=== PATIENT | male | born 1945 | race Caucasian/White ===

== ENCOUNTER 2022-01-31 06:57 | Emergency (ER) | payer OTHER ==
--- OUTSIDE RECORDS SUMMARY | 2022-01-31 06:59 | XMS REPORT | Continuity of Care Document ---
:1945 Author Organization [facility] t Address [address] [place] [address] Care Team Providers Name Role Phone Olya Liu Attending Clinician [phone] Goldfarb_D Attending Clinician Unavailable MAYUR Attending Clinician Unavailable JOANNA Attending Clinician Unavailable Shivamfarb_D Admitting Clinician Unavailable Payers Payer Name Policy Type Policy Number Effective Date Expiration Date Henri MAURO (MEDICARE [id number] 2021 REPLACEMENT PPO) 00:00:00 Problems This patient has no known problems. Allergies, Adverse Reactions, Alerts This patient has no known allergies or adverse reactions. Medications This patient has no known medications. Procedures This patient has no known procedures. Encounters Start End Encounter Admission Attending Care Care Encounter Source Date/Time Date/Time Type Type Clinicians Facility Department ID 2022-01-27 2022-01-27 Outpatient Alexa, [facility] [id number] 00:00:00 00:00:00 Thang Dobson [id number] 2022-01-10 2022-01-10 Outpatient Goldfarb_D U [facility] [address] [facility] [place] 02:37:00 02:37:00 [facility] 2021-12-29 2021-12-29 Outpatient Goldfarb_D U [facility] [address] [facility] [place] 08:45:00 08:45:00 [id number] [facility] 2021-12-28 2021-12-28 Outpatient Goldfarb_D U [facility] [address] [place] [address] 05:55:00 05:55:00 [facility] 2021-12-24 2021-12-24 Outpatient Goldfarb_D [facility] 4428 [place] 02:36:00 02:36:00 [facility] 2021-12-22 2021-12-22 Outpatient Goldfarb_D [facility] 44[address] [place] 11:39:00 11:39:00 [facility] 2021-12-22 2021-12-22 Outpatient Alexa, [facility] [id number] 00:00:00 00:00:00 Thang Dobson [id number] 2021-12-22 2021-12-22 Outpatient Alexa, [facility] [id number] 00:00:00 00:00:00 Thang Dobson [id number] 2021-12-19 2021-12-19 Outpatient Goldfarb_D [facility] 4428 [place] 10:16:00 10:16:00 [facility] 2021-10-13 2021-10-13 Outpatient MAYUR, [facility] [id number] [place] 00:00:00 00:00:00 MAURICIO [address] 2021-10-13 2021-10-13 Outpatient MAYUR, [facility] [id number] [place] 00:00:00 00:00:00 MAURICIO [address] 2021-05-25 2021-05-25 Outpatient JOANNA, [facility] [id number] [place] 00:00:00 00:00:00 YOLANDA [address] 2020-07-04 2020-07-04 Outpatient Goldfarb_D [facility] 4428 [place] 10:12:00 10:12:00 [facility] Results Test Description Test Time Test Comments Results Result Sour e Comments - MRI LW JNT W/O 2019-06-15 Patient Name: CONT BI 09:20:00 NAT GRULLON Unit No: [id number] Report Has Been Amended EXAMS: CPT CODE: [id number] MRI [place] JNT [place] [id number] Addendum - 06/15/2019 SIGNED 06/15/2019 ADDENDUM: [id number] MRI/[id number] The original dictation did not include description of the left knee MRI. TECHNIQUE: Multiplanar, multisequence MRI of the left knee without contrast. COMPARISON: None available. FINDINGS: Menisci: There is evidence of prior meniscectomy involving the body of the medial meniscus. Recurrent complex tear of the medial meniscus is centered at the meniscal body with extension of horizontal component to the posterior horn. No definite lateral meniscal tear visualized. Ligament and tendons: The ACL diffusely thickened with increased signal. No definite tear. PCL is intact. Collateral ligaments are within normal limits. Extensor mechanism is unremarkable. Cartilage/ bone: Broad full-thickness cartilage loss is seen throughout the medial compartment with slight flattening the articular surface as well as scattered subchondral edema. Mild scattered trochlear cartilage degeneration is present. The lateral compartment cartilage is within normal limits. Small tricompartmental osteophytes. Other: A moderate joint effusion is noted. No large loose body. IMPRESSION: 1. Evidence of prior partial medial meniscectomy with recurrent tear involving the posterior horn and body. 2. Severe medial compartment cartilage degeneration diffusely. 3. Moderate size joint effusion. at 0920 Reported and signed by: Guillermo Karimi M.D. Report MRI OF THE RIGHT KNEE, WITHOUT CONTRAST DIAGNOSIS: 1. 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 There is associated complex tearing with maceration of the posterior horn body and apex anterior horn medial meniscus. There is major extrusion of the meniscus. The tear extends to the posterior root. Focal osteonecrosis of the weightbearing surface of the medial femoral condyle cannot be excluded. 2. The anterior cruciate ligament is diffusely thickened and increased in signal compatible with ACL degeneration 3. Moderate joint effusion. 4. Multiseptate ganglion cyst projects from the posterior aspect of the proximal tibiofibular joint. There is a contained mature calcification within the cyst. COMPARISON EXAM: None TECHNIQUE: Sagittal, axial and coronal fat-sat spin density, sagittal T1 and sagittal oblique T2-weighted sequences are obtained of the described right knee. CLINICAL HISTORY: FINDINGS: MENISCI: Medial meniscal tear as described. Lateral meniscus is intact CRUCIATE LIGAMENTS: Marked degeneration of the ACL. PCL is intact. COLLATERAL LIGAMENTS: Medial and lateral collateral ligaments as well as patellar and quadriceps tendons are intact. OSSEOUS STRUCTURES: Osteochondral abnormality medial compartment knee joint. Visualized bony structures of the femur and tibia are within normal limits in signal. PATELLOFEMORAL COMPARTMENT: No chondral abnormality involving the patellofemoral joint. No patellar tilt, or subluxation. Medial and lateral patellar retinacula are intact. SOFT TISSUES: Moderate joint effusion. No popliteal cyst. No soft tissue masses. [facility] NAME: NAT GRULLON [address] [facility] PHYS: Chauncey Barrett MD : 1945 AGE: 74 SEX: M [place], [place] [address] LOC: Y.MRI PHONE #: [phone] EXAM DATE: 06/13/2019 STATUS: DEP CLI FAX #: [phone] RAD #: D/C DT PAGE 2 Signed Report (CONTINUED) Patient Name: NAT GRULLON Unit No: [id number] Report Has Been Amended EXAMS: CPT CODE: [id number] MRI LW JNT W/[place] [address] <Continued> at 1042 Reported and signed by: Gilberto Tobar MD CC: Chauncey Brown MD Technologist: Carmenza Null(R) Transcribed D/ (1042) [facility] NAME: NAT GRULLON [address] [facility] PHYS: Chauncey Barrett MD : 1945 AGE: 74 SEX: M [place] [address] LOC: Y.MRI PHONE #: [phone] EXAM DATE: 06/13/2019 STATUS: DEP CLI FAX #: [phone] RAD #: D/C DT PAGE 3 Signed Report Patient Name: NAT GRULLON Unit No: [id number] Report Has Been Amended EXAMS: CPT CODE: [id number] MRI LW JNT W/[place] [id number] <Continued> Orig Print D/T: S: 06/14/2019 (0752) [facility] NAME: NAT GRULLON [address] [facility] PHYS: Chauncey Barrett MD : 1945 AGE: 74 SEX: M [place] [address] LOC: Y.MRI PHONE #: [phone] EXAM DATE: 06/13/2019 STATUS: DEP CLI FAX #: [phone] RAD #: D/C DT PAGE 4 Signed Report - MRI LW JNT W/O 2019-06-14 Patient Name: CONT BI 10:42:00 NAT GRULLON Unit No: [id number] EXAMS: CPT CODE: [id number] MRI LW JNT W/[place] [id number] MRI OF THE RIGHT KNEE, WITHOUT CONTRAST DIAGNOSIS: 1. 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 There is associated complex tearing with maceration of the posterior horn body and apex anterior horn medial meniscus. There is major extrusion of the meniscus. The tear extends to the posterior root. Focal osteonecrosis of the weightbearing surface of the medial femoral condyle cannot be excluded. 2. The anterior cruciate ligament is diffusely thickened and increased in signal compatible with ACL degeneration 3. Moderate joint effusion. 4. Multiseptate ganglion cyst projects from the posterior aspect of the proximal tibiofibular joint. There is a contained mature calcification within the cyst. COMPARISON EXAM: None TECHNIQUE: Sagittal, axial and coronal fat-sat spin density, sagittal T1 and sagittal oblique T2-weighted sequences are obtained of the described right knee. CLINICAL HISTORY: FINDINGS: MENISCI: Medial meniscal tear as described. Lateral meniscus is intact CRUCIATE LIGAMENTS: Marked degeneration of the ACL. PCL is intact. COLLATERAL LIGAMENTS: Medial and lateral collateral ligaments as well as patellar and quadriceps tendons are intact. OSSEOUS STRUCTURES: Osteochondral abnormality medial compartment knee joint. Visualized bony structures of the femur and tibia are within normal limits in signal. PATELLOFEMORAL COMPARTMENT: No chondral abnormality involving the patellofemoral joint. No patellar tilt, or subluxation. Medial and lateral patellar retinacula are intact. SOFT TISSUES: Moderate joint effusion. No popliteal cyst. No soft tissue masses. [facility] NAME: NAT GRULLON [address] [place] [address] PHYS: Chauncey Barrett MD : 1945 AGE: 74 SEX: M [place] [address] LOC: Y.MRI PHONE #: [phone] EXAM DATE: 06/13/2019 STATUS: DEP CLI FAX #: [phone] RAD #: D/C DT PAGE 1 Signed Report (CONTINUED) Patient Name: NAT GRULLON Unit No: [id number] EXAMS: CPT CODE: [id number] MRI [place] JNT W/[place] [address] <Continued> at 1042 Reported and signed by: Gilberto Tobar MD CC: Chauncey Brown MD Technologist: Carmenza Null(R) Transcribed D/ (1042) [email or web address] NAME: NAT GRULLON [address] [place] [address] PHYS: Chauncey Barrett MD : 1945 AGE: 74 SEX: M [place] [address] LOC: Y.MRI PHONE #: [phone] EXAM DATE: 06/13/2019 STATUS: DEP CLI FAX #: [phone] RAD #: D/C DT PAGE 2 Signed Report Patient Name: NAT GRULLON Unit No: [id number] EXAMS: CPT CODE: [id number] MRI [place] JNT [place] [id number] <Continued> Orig Print D/T: S: 06/14/2019 (1045) [facility] NAME: NAT GRULLON [address] [facility] PHYS: Chauncey Barrett MD : 1945 AGE: 74 SEX: Dharmesh [place], [place] [address] LOC: Y.MRI PHONE #: [phone] EXAM DATE: 06/13/2019 STATUS: DEP CLI FAX #: [phone] RAD #: D/C DT PAGE 3 Signed Report
[2022-01-31] MEDS ORDERED: MORPHINE 2 MG/ML SYR ONE (07:44)
[2022-01-31] MEDS ORDERED: ONDANSETRON 4 MG/2 ML VIAL ONE (07:44)
[2022-01-31] MEDS ORDERED: NA CHLORIDE 0.9% 1,000 ML ONE (07:45)
[2022-01-31 08:00] LABS: Absolute Lymphocytes (CBC) 0.9 K/uL (0.7-4.9); Hematocrit 40.9 % (39.6-49.0); Lymphocytes % 26.1 % (15.3-44.8); RBC Red Blood Cell Count 4.24 M/uL (4.33-5.43)
--- NOTE | 2022-01-31 08:08 | RAD REPORT ---
EXAM DESCRIPTION: CTStone Protocol - 01/31/2022 7:58 am CLINICAL HISTORY: Flank pain, kidney stone suspected COMPARISON: Abdomen Pelvis W Contrast dated 02/10/2016; ABDOMEN W CONTRAST dated 04/29/2014; CT ABD PELVIS W CONTRAST dated 12/28/2008 TECHNIQUE: CT of the abdomen and pelvis was performed without contrast. All CT scans are performed using dose optimization technique as appropriate and may include automated exposure control or mA/KV adjustment according to patient size. FINDINGS: Lower chest: Coronary artery calcifications. Liver: No acute abnormality or suspicious lesions. Biliary: No biliary ductal dilatation. Cholecystectomy. Stomach: No significant focal abnormality. Duodenum: No significant focal abnormality. Pancreas: No significant abnormality. Spleen: No significant abnormality. Adrenal: No suspicious lesions. Kidney/ureter: Mild left-sided hydronephrosis secondary to a 6 mm stone in the left mid ureter. Bilat eral renal sinus cysts. Bilateral renal calculi also noted. The largest on the right kidney measures 4 millimeters. The largest stone the left kidney measures 2 millimeters. Too small to characterize an d/or benign appearing renal lesions are noted. Retroperitoneum: No retroperitoneal adenopathy. Vascular: No aneurysm. Bowel: Diverticulosis without diverticulitis .. Peritoneum: No ascites or free air. Right inguinal hernia repair. Bladder: 5 mm stone within the bladder. Reproductive: Prostatomegaly. Bones: No acute fracture. Multilevel degenerative changes are present in the spine. Other: n/a IMPRESSION: Mild left-sided hydronephrosis secondary to a 6 mm stone in the left mid ureter. In liyah tion, a 5 mm stone is present within the bladder lumen.
[2022-01-31] MEDS ORDERED: KETOROLAC 30 MG/ML INJ ONE (08:19)
[2022-01-31 08:26] LABS: Albumin 3.9 g/dL (3.4-5.0); Bilirubin Direct 0.2 mg/dL (0-0.2); Bilirubin Total 0.9 mg/dL (0.2-1.0); Potassium 3.6 mmol/L (3.5-5.1); Protein, Total 7.8 g/dL (6.4-8.2)
[2022-01-31 09:35] LABS: Urine Blood 3+ (Negative); Urine Glucose Negative (Negative); Urine Protein 1+ (Negative); Urine Specific Gravity >=1.030 (1.005-1.030); Urine pH 5.5 (5.0-7.0)
[2022-01-31 09:59] LABS: Urine Bacteria NONE SEEN /HPF (NONE SEEN); Urine RBC >50 /HPF (NONE SEEN)
--- NOTE | 2022-01-31 10:47 | ER ---
Nurse's Notes [facility] Name: Truman Malave Jr Age: 76 yrs Sex: Male : 1945 Arrival Date: 01/31/2022 Time: 06:59 Bed 14 Private MD: Diagnosis: Calculus of ureter Presentation: 01/31 07:10 Chief complaint: Patient states: Had prostate biopsy Tuesday. Took Bactrim for ll1 surgery. Has had loose stools since. L lower back pain started . Now the pain wraps around to L groin area. No fever all week. Coronavirus screen: Vaccine status: Patient reports receiving the 2nd dose of the covid vaccine. Client denies travel out of the [place] in the last 14 days. At this time, the client does not indicate any symptoms associated with coronavirus-19. Ebola Screen: Patient denies travel to an Ebola-affected area in the 21 days before illness onset. Initial Sepsis Screen: Does the patient meet any 2 criteria? No. Patient's initial sepsis screen is negative. Does the patient have a suspected source of infection? Yes: Dysuria/Frequency/Urgency/UTI Acute abdominal pain. Risk Assessment: Do you want to hurt yourself or someone else? Patient reports no desire to harm self or others. Onset of symptoms was January 28, 2022. 07:10 Method Of Arrival: Ambulatory ll1 07:10 Acuity: NETTE 3 ll1 Triage Assessment: 07:14 General: Appears uncomfortable, Behavior is calm, cooperative, appropriate for age. ll1 Pain: Complains of pain in L back/L groin Pain currently is 8 out of 10 on a pain scale. Neuro: No deficits noted. Cardiovascular: No deficits noted. Respiratory: No deficits noted. GI: Reports cramping, gaseousness, indigestion, "loose stools". : Reports pain in left flank(s), in lower back blood in urine after biopsy. Historical: - Allergies: 07:10 Latex, Natural Rubber; ll1 07:10 Phenergan; ll1 07:10 Dexilant; ll1 - PMHx: 07:10 Hypertensive disorder; ll1 - PSHx: 07:10 Cholecystectomy; hernia SX; ll1 - Immunization history:: Client reports receiving the 2nd dose of the Covid vaccine. - Social history:: Smoking status: Patient denies any tobacco usage or history of. Patient/guardian denies using alcohol, street drugs, The patient lives with family. - Family history:: not pertinent. Screenin:15 Abuse screen: Denies threats or abuse. Denies injuries from another. Nutritional bp screening: No deficits noted. Tuberculosis screening: No symptoms or risk factors identified. Fall Risk None identified. Assessment: 07:15 General: SEE TRIAGE NOTE. bp 07:27 Reassessment: DR John at bedside to speak w/ pt. ph 09:30 Reassessment: Patient appears in no apparent distress at this time. Patient and/or ph family updated on plan of care and expected duration. Pain level reassessed. Patient is alert, oriented x 3, equal unlabored respirations, skin warm/dry/pink. Patient states feeling better. Patient states symptoms have improved. 11:11 Reassessment: Patient appears in no apparent distress at this time. Patient and/or ph family updated on plan of care and expected duration. Pain level reassessed. Patient is alert, oriented x 3, equal unlabored respirations, skin warm/dry/pink. Vital Signs: 07:10 BP 175 / 87; Pulse 78; Resp 16; Temp 97.8; Pulse Ox 99% ; Weight 68.04 kg; Height 5 ft. ll1 6 in. (167.64 cm); Pain 8/10; 10:00 BP 165 / 78; Pulse 65; Resp 18; Temp 98.0; Pulse Ox 99% on R/A; ph 11:11 BP 162 / 78; Pulse 62; Resp 18; Pulse Ox 98% on R/A; ph 07:10 Body Mass Index 24.21 (68.04 kg, 167.64 cm) ll1 ED Course: 06:59 Patient arrived in ED. ja2 07:01 Arm band placed on Patient placed in an exam room, on a stretcher. ll1 07:14 Triage completed. ll1 07:15 Patient has correct armband on for positive identification. Bed in low position. Call bp light in reach. Side rails up X2. 07:18 Narayan Elliott, BEATRIZ is Primary Nurse. bp 07:31 Kika John MD is Attending Physician. ma2 07:40 Initial lab(s) drawn, by me, sent to lab. Inserted saline lock: 20 gauge in right ph forearm, using aseptic technique. Blood collected. 07:59 CT Stone Protocol In Process Unspecified. EDMS 10:45 Brant Larsen MD is Referral Physician. ma2 11:11 No provider procedures requiring assistance completed. Patient did not have IV access ss during this emergency room visit. Administered Medications: 07:45 Drug: Zofran (Ondansetron) 4 mg Route: IVP; Site: right forearm; ph 08:04 Follow up: Response: No adverse reaction ph 07:45 Drug: NS 0.9% 1000 ml Route: IV; Rate: 1 bolus; Site: right forearm; ph 10:01 Follow up: Response: No adverse reaction; IV Status: Completed infusion; IV Intake: ph 1000ml 07:47 Drug: morphine 2 mg Route: IVP; Infused Over: 4 mins; Site: right forearm; ph 08:04 Follow up: Response: No adverse reaction; RASS: Alert and Calm (0) ph 08:17 Drug: Ketorolac 30 mg Route: IVP; Site: right forearm; ph 10:00 Follow up: Response: No adverse reaction; Pain is decreased ph Medication: 07:15 VIS not applicable for this client. bp Intake: 10:01 IV: 1000ml; Total: 1000ml. ph Outcome: 10:45 Discharge ordered by . ma2 11:11 Discharged to home ambulatory. ss 11:11 Condition: good 11:11 Discharge instructions given to patient, Instructed on discharge instructions, follow up and referral plans. medication usage, Demonstrated understanding of instructions, follow-up care, Prescriptions given X 2. 11:13 Patient left the ED. ss Signatures: Dispatcher [employer] EDMD Pratima Graham RN RN Lora Gaston RN RN Narayan Elliott RN RN bp Alzahri, Mohammad, MD MD ma2 Lewis, Lynsay, RN RN ll1 Stephani Girard Corrections: (The following items were deleted from the chart) 10:00 09:57 Reassessment: Patient appears in no apparent distress at this time. Patient ph and/or family updated on plan of care and expected duration. Pain level reassessed. Patient is alert, oriented x 3, equal unlabored respirations, skin warm/dry/pink. Pt c/o pain, verbal order received for dilaudid 1 mg, pt's BP noted to be low at 90/50, rate of fluid bolus increased and dilaudid held, will reassess BP after fluid bolus complete ph 10:00 09:59 BP 90 / 50; Pulse 103bpm; Resp 18bpm; Pulse Ox 95% RA; ph ph
--- NOTE | 2022-01-31 10:47 | EDPHYS ---
Physician Documentation [facility] Name: Truman Malave Jr Age: 76 yrs Sex: Male : 1945 Arrival Date: 01/31/2022 Time: 06:59 Bed 14 Private MD: ED Physician Kika John HPI: 01/31 07:37 This 76 yrs old Male presents to ER via Ambulatory with complaints of Low Back Pain. ma2 07:37 This 76 yrs old Male presents to ER via Ambulatory with complaints of LEFT FLANK PAIN. ma2 07:37 The pain does not radiate. Onset: The symptoms/episode began/occurred gradually, 2 ma2 day(s) ago. Associated signs and symptoms: Pertinent negatives: constipation, dysuria, headache, hematuria. Severity of symptoms: At their worst the symptoms were moderate, in the emergency department the symptoms are unchanged. The patient has not experienced similar symptoms in the past. Historical: - Allergies: 07:10 Latex, Natural Rubber; ll1 07:10 Phenergan; ll1 07:10 Dexilant; ll1 - PMHx: 07:10 Hypertensive disorder; ll1 - PSHx: 07:10 Cholecystectomy; hernia SX; ll1 - Immunization history:: Client reports receiving the 2nd dose of the Covid vaccine. - Social history:: Smoking status: Patient denies any tobacco usage or history of. Patient/guardian denies using alcohol, street drugs, The patient lives with family. - Family history:: not pertinent. ROS: 07:37 Constitutional: Negative for fever, chills, and weight loss. ma2 07:37 All other systems are negative. Exam: 07:37 Constitutional: This is a well developed, well nourished patient who is awake, alert, ma2 and in no acute distress. Eyes: Pupils equal round and reactive to light, extra-ocular motions intact. Lids and lashes normal. Conjunctiva and sclera are non-icteric and not injected. Cornea within normal limits. Periorbital areas with no swelling, redness, or edema. ENT: Nares patent. No nasal discharge, no septal abnormalities noted. Tympanic membranes are normal and external auditory canals are clear. Oropharynx with no redness, swelling, or masses, exudates, or evidence of obstruction, uvula midline. Mucous membranes moist. Neck: Trachea midline, no thyromegaly or masses palpated, and no cervical lymphadenopathy. Supple, full range of motion without nuchal rigidity, or vertebral point tenderness. No Meningismus. Chest/axilla: Normal chest wall appearance and motion. Nontender with no deformity. No lesions are appreciated. Cardiovascular: Regular rate and rhythm with a normal S1 and S2. No gallops, murmurs, or rubs. Normal PMI, no JVD. No pulse deficits. Respiratory: Lungs have equal breath sounds bilaterally, clear to auscultation and percussion. No rales, rhonchi or wheezes noted. No increased work of breathing, no retractions or nasal flaring. Abdomen/GI: Soft, non-tender, with normal bowel sounds. No distension or tympany. No guarding or rebound. No evidence of tenderness throughout. Back: No spinal tenderness. No costovertebral tenderness. Full range of motion. MS/ Extremity: Pulses equal, no cyanosis. Neurovascular intact. Full, normal range of motion. Neuro: Awake and alert, GCS 15, oriented to person, place, time, and situation. Cranial nerves II-XII grossly intact. Motor strength 5/5 in all extremities. Sensory grossly intact. Cerebellar exam normal. Normal gait. Vital Signs: 07:10 BP 175 / 87; Pulse 78; Resp 16; Temp 97.8; Pulse Ox 99% ; Weight 68.04 kg; Height 5 ft. ll1 6 in. (167.64 cm); Pain 8/10; 10:00 BP 165 / 78; Pulse 65; Resp 18; Temp 98.0; Pulse Ox 99% on R/A; ph 11:11 BP 162 / 78; Pulse 62; Resp 18; Pulse Ox 98% on R/A; ph 07:10 Body Mass Index 24.21 (68.04 kg, 167.64 cm) ll1 MDM: 07:37 Differential diagnosis: arthritis, strain, contusion, UTI. ma2 08:13 Data reviewed: vital signs, nurses notes, EMS record. Counseling: I had a detailed ma2 discussion with the patient and/or guardian regarding: the historical points, exam findings, and any diagnostic results supporting the discharge/admit diagnosis, the presence of at least one elevated blood pressure reading (>120/80) during this emergency department visit, the need for outpatient follow up. 10:45 Patient medically screened. ms2 01/31 07:32 Order name: Basic Metabolic Panel; Complete Time: 10:13 ms2 01/31 07:32 Order name: CBC with Diff; Complete Time: 08:09 ms2 01/31 07:32 Order name: Hepatic Function; Complete Time: 10:13 ms2 01/31 07:32 Order name: Lipase; Complete Time: 10:13 ms2 01/31 07:32 Order name: Urine Microscopic Only; Complete Time: 10:13 ms2 01/31 09:36 Order name: Urine Dipstick-Ancillary; Complete Time: 10:13 EDMS 01/31 07:32 Order name: CT Stone Protocol; Complete Time: 08:09 ms2 01/31 07:32 Order name: IV Saline Lock; Complete Time: 08:03 ms2 01/31 07:32 Order name: NPO; Complete Time: 07:34 ms2 01/31 07:32 Order name: Urine Dipstick-Ancillary (obtain specimen); Complete Time: 10:01 [facility] Administered Medications: 07:45 Drug: Zofran (Ondansetron) 4 mg Route: IVP; Site: right forearm; ph 08:04 Follow up: Response: No adverse reaction ph 07:45 Drug: NS 0.9% 1000 ml Route: IV; Rate: 1 bolus; Site: right forearm; ph 10:01 Follow up: Response: No adverse reaction; IV Status: Completed infusion; IV Intake: ph 1000ml 07:47 Drug: morphine 2 mg Route: IVP; Infused Over: 4 mins; Site: right forearm; ph 08:04 Follow up: Response: No adverse reaction; RASS: Alert and Calm (0) ph 08:17 Drug: Ketorolac 30 mg Route: IVP; Site: right forearm; ph 10:00 Follow up: Response: No adverse reaction; Pain is decreased ph Disposition Summary: 01/31/22 10:45 Discharge Ordered Location: Home ma2 Condition: Stable ma2 Diagnosis - Calculus of ureter ma2 Followup: ma2 - With: - When: Tomorrow - Reason: If symptoms return, Continuance of care Discharge Instructions: - Discharge Summary Sheet ma2 - Kidney Stones ma2 - Dietary Guidelines to Help Prevent Kidney Stones ma2 Forms: - Medication Reconciliation Form ma2 - Thank You Letter ma2 - Antibiotic Education ma2 - Prescription Opioid Use ma2 Prescriptions: - Diclofenac Sodium 75 mg Oral Tablet Sustained Release - take 1 tablet by ORAL route 2 times per day; 30 tablet; Refills: 0, Product ma2 Selection Permitted - Tylenol-Codeine #3 300 mg-30 mg Oral - take 1 tablet by ORAL route 3 times per day; 21 tablet; Refills: 0, Product ma2 Selection Permitted Signatures: Dispatcher [employer] Lora Salgado, RN RN Kika John MD MD ms2 Garfield Sloan RN RN 1
[2022-01-31 11:28] VITALS: TEMP 98
[2022-01-31 11:29] VITALS: BP 162/78; O2SAT 98
== END 2022-01-31 11:13 | disposition home or self-care (01) ==
LOC: ER 06:57
DX: N20.1 Calculus of ureter (principal); I10 Essential (primary) hypertension; Z88.8 Allergy status to other drugs, medicaments and biological substances; Z91.040 Latex allergy status; Z91.048 Other nonmedicinal substance allergy status
CPT/HCPCS: 85025; 80048; 36415; 80076; 83690; 76377; 74176; J2270; J7030; J2405; 81003; 81015; 96361; 96374; 96375; 99284

== ENCOUNTER 2022-02-05 21:31 | Emergency (ER) | payer OTHER ==
--- OUTSIDE RECORDS SUMMARY | 2022-02-05 21:36 | XMS REPORT | Continuity of Care Document ---
:1945 Author Organization [facility] t Address [address] [place] [address] Care Team Providers Name Role Phone Leandra Attending Clinician Unavailable CAMILO Attending Clinician Unavailable Olya Liu Attending Clinician [phone] MAYUR Attending Clinician Unavailable JOANNA Attending Clinician Unavailable Leandra Admitting Clinician Unavailable CAMILO Admitting Clinician Unavailable Payers Payer Name Policy Type Policy Number Effective Date Expiration Date Henri feliz [employer] (MEDICARE [id number] 2021 REPLACEMENT PPO) 00:00:00 [id number] Problems This patient has no known problems. Allergies, Adverse Reactions, Alerts Allergy Allergy Status Severity Reaction(s) Onset Inactive Treating Comm ents Source Name Type Date Date Clinician Latex, Allergy Active Mild Itching Lenora Natural - Rubber [facility] Latex, Allergy Active Mild Itching Lenora Natural - Rubber [facility] Latex, Allergy Active Mild Itching Lenora Natural - Rubber [facility] Latex, Allergy Active Mild Itching Lenora Natural - Rubber [facility] Latex, Allergy Active Mild Itching Lenora Natural - Rubber [facility] Latex, Allergy Active Mild Itching Lenora Natural - Rubber [facility] Latex, Allergy Active Mild Itching Lenora Natural - Rubber [facility] Latex, Allergy Active Mild Itching Lenora Natural - Rubber [facility] Medications This patient has no known medications. Vital Signs Vital Name Observation Time Observation Value Comments Source HEIGHT 2022-02-02 22:40:05 66 IN WEIGHT 2022-02-02 22:40:05 150 LB HEIGHT 2022-02-02 22:39:07 66 IN WEIGHT 2022-02-02 22:39:07 150 LB HEIGHT 2022-02-02 22:28:04 66 IN WEIGHT 2022-02-02 22:28:04 150 LB HEIGHT 2022-02-02 22:25:09 66 IN WEIGHT 2022-02-02 22:25:09 150 LB HEIGHT 2022-02-02 22:24:07 66 IN WEIGHT 2022-02-02 22:24:07 150 LB HEIGHT 2022-02-02 22:23:11 66 IN WEIGHT 2022-02-02 22:23:11 150 LB HEIGHT 2022-02-02 22:23:04 66 IN WEIGHT 2022-02-02 22:23:04 150 LB HEIGHT 2022-02-02 22:22:05 66 IN WEIGHT 2022-02-02 22:22:05 150 LB HEIGHT 2022-02-02 22:20:06 66 IN WEIGHT 2022-02-02 22:20:06 150 LB Procedures This patient has no known procedures. Encounters Start End Encounter Admission Attending Care Care Encounter Source Date/Time Date/Time Type Type Clinicians Facility Department ID 2022-02-05 2022-02-05 Outpatient Goldfarb_D U [facility] [id number] [facility] [place] 10:42:00 10:42:00 [facility] 2022-02-02 2022-02-02 Emergency PINKSTAFF, CPRK OE [id number] Lenora 22:00:00 22:30:00 [facility] 2022-01-27 2022-01-27 Outpatient Alexa, [facility] [id number] 00:00:00 00:00:00 Thang Dobson [id number] 2022-01-10 2022-01-10 Outpatient Goldfarb_D [facility] [address] [facility] [place] 02:37:00 02:37:00 [facility] 2021-12-29 2021-12-29 Outpatient Goldfarb_D U [facility] [address] [facility] [place] 08:45:00 08:45:00 [facility] 2021-12-28 2021-12-28 Outpatient Goldfarb_D [facility] [address] [place] 05:55:00 05:55:00 [facility] 2021-12-24 2021-12-24 Outpatient Goldfarb_D [facility] 44[address] [place] 02:36:00 02:36:00 [facility] 2021-12-22 2021-12-22 Outpatient Goldfarb_D [facility] [address] [place] 11:39:00 11:39:00 [facility] 2021-12-22 2021-12-22 Outpatient Alexa, [facility] U [id number] 00:00:00 00:00:00 Thang Dobson [id number] 2021-12-22 2021-12-22 Outpatient Alexa, [facility] [place] [id number] 00:00:00 00:00:00 Thang Olya [id number] 2021-12-19 2021-12-19 Outpatient Goldfarb_D [facility] [address] [place] 10:16:00 10:16:00 [facility] 2021-10-13 2021-10-13 Outpatient MAYUR, [facility] [id number] [place] 00:00:00 00:00:00 MAURICIO [address] 2021-10-13 2021-10-13 Outpatient MAYUR [facility] [id number] [place] 00:00:00 00:00:00 MAURICIO [address] 2021-05-25 2021-05-25 Outpatient JOANNA, [facility] [id number] [place] 00:00:00 00:00:00 YOLANDA [address] 2020-07-04 2020-07-04 Outpatient Goldfarb_D U [facility] [address] [place] 10:12:00 10:12:00 [facility] Results Test Description Test Time Test Comments Results Result Sourc e Comments - MRI LW JNT W/O 2019-06-15 Patient Name: CONT BI 09:20:00 NAT GRULLON Unit No: [id number] Report Has Been Amended EXAMS: CPT CODE: [id number] MRI LW JNT W/[place] [id number] Addendum - 06/15/2019 SIGNED 06/15/2019 ADDENDUM: [id number] MRI/[id number] The original dictation did not include [...] medial compartment of the knee joint with [facility] NAME: NAT GRULLON [address] [facility] PHYS: Chauncey Barrett MD : 1945 AGE: 74 SEX: M [place], [place] [address] LOC: Y.MRI PHONE #: [phone] EXAM DATE: 06/13/2019 STATUS: DEP CLI FAX #: [phone] RAD #: D/C DT PAGE 1 Signed Report (CONTINUED) Patient Name: NAT GRULLON Unit No: [id number] Report Has Been Amended EXAMS: CPT CODE: [id number] MRI LW JNT W/[place] [address] <Continued> complete loss of cartilage and associated [...] No popliteal cyst. No soft tissue masses. [facility] NAME: NAT GRULLON [address] [facility] PHYS: Chauncey Barrett MD : 1945 AGE: 74 SEX: M [place], [place] [address] LOC: Y.MRI PHONE #: [phone] EXAM DATE: 06/13/2019 STATUS: DEP CLI FAX #: [phone] RAD #: D/C DT PAGE 2 Signed Report (CONTINUED) Patient Name: NAT GRULLON Unit No: [id number] Report Has Been Amended EXAMS: CPT CODE: [id number] MRI LW JNT W/[place] [address] <Continued> at 1042 Reported and signed by: Gilberto Tobar MD CC: Chauncey Brown MD Technologist: Carmenza Null(R) Transcribed D/ (6612) Armando.GVG [facility] NAME: NAT GRULLON [address] [place] [address] PHYS: Chauncey Barrett MD : 1945 AGE: 74 SEX: M [place] [address] LOC: Y.MRI PHONE #: [phone] EXAM DATE: 06/13/2019 STATUS: DEP CLI FAX #: [phone] RAD #: D/C DT PAGE 3 Signed Report Patient Name: NAT GRULLON Unit No: [id number] Report Has Been Amended EXAMS: CPT CODE: [id number] MRI LW JNT [place] [address] <Continued> Orig Print D/T: S: 06/14/2019 (1399) [facility] NAME: NAT GRULLON [facility] PHYS: Chauncey Barrett MD : 1945 AGE: 74 SEX: M [place] [address] LOC: Y.MRI PHONE #: [phone] EXAM DATE: 06/13/2019 STATUS: DEP CLI FAX #: [phone] RAD #: D/C DT PAGE 4 Signed Report - MRI LW JNT W/O 2019-06-14 Patient Name: CONT BI 10:42:00 NAT GRULLON Unit No: [id number] EXAMS: CPT CODE: [id number] MRI LW JNT W/[place] [address] MRI OF THE RIGHT KNEE, WITHOUT CONTRAST [...] No popliteal cyst. No soft tissue masses. [facility] NAME: NAT GRULLON [address] [place] [address] PHYS: Chauncey Barrett MD : 1945 AGE: 74 SEX: M [place] [address] LOC: Y.MRI PHONE #: [phone] EXAM DATE: 06/13/2019 STATUS: DEP CLI FAX #: [phone] RAD #: D/C DT PAGE 1 Signed Report (CONTINUED) Patient Name: NAT GRULLON Unit No: [id number] EXAMS: CPT CODE: [id number] MRI [place] JNT W/[place] [address] <Continued> at 1042 Reported and signed by: Gilberto Tobar MD CC: Chauncey Bronw MD Technologist: Carmenza Null(R) Transcribed D/ (1042) tALINA.GVG [facility] NAME: NAT GRULLON [address] [place] [address] PHYS: Chauncey Barrett MD : 1945 AGE: 74 SEX: M [place] [address] LOC: Y.MRI PHONE #: [phone] EXAM DATE: 06/13/2019 STATUS: DEP CLI FAX #: [phone] RAD #: D/C DT PAGE 2 Signed Report Patient Name: NAT GRULLON Unit No: [id number] EXAMS: CPT CODE: [id number] MRI [place] JNT W/[place] [address] <Continued> Orig Print D/T: S: 06/14/2019 (1045) [facility] NAME: NAT GRULLON [address] [facility] PHYS: Chauncey Barrett MD : 1945 AGE: 74 SEX: M [place], [place] [address] LOC: Y.MRI PHONE #: [phone] EXAM DATE: 06/13/2019 STATUS: DEP CLI FAX #: [phone] RAD #: D/C DT PAGE 3 Signed Report
[2022-02-05] MEDS ORDERED: ONDANSETRON 4 MG/2 ML VIAL ONE (22:44)
[2022-02-05] MEDS ORDERED: MORPHINE 4 MG/ML SYR ONE (22:44)
[2022-02-05] MEDS ORDERED: NA CHLORIDE 0.9% 1,000 ML ONE (22:44)
[2022-02-05 23:28] LABS: Absolute Lymphocytes (CBC) 0.7 K/uL (0.7-4.9); Hematocrit 35.6 % (39.6-49.0); Lymphocytes % 8.4 % (15.3-44.8); MPV 8.2 fL (7.6-11.3); RBC Red Blood Cell Count 3.71 M/uL (4.33-5.43)
[2022-02-05 23:47] LABS: Albumin 3.7 g/dL (3.4-5.0); Bilirubin Total 1.1 mg/dL (0.2-1.0); Potassium 3.1 mmol/L (3.5-5.1); Protein, Total 7.4 g/dL (6.4-8.2)
[2022-02-06 00:03] LABS: Urine Blood 2+ (Negative); Urine Glucose Negative (Negative); Urine Protein Trace (Negative); Urine Specific Gravity 1.025 (1.005-1.030); Urine pH 5.5 (5.0-7.0)
[2022-02-06 00:25] LABS: Urine Bacteria 20-50 /HPF (NONE SEEN); Urine Mucus 1+ /HPF (NONE SEEN); Urine RBC 20-50 /HPF (NONE SEEN)
[2022-02-06] MEDS ORDERED: KETOROLAC 30 MG/ML INJ ONE (01:04)
[2022-02-06] MEDS ORDERED: ONDANSETRON 4 MG/2 ML VIAL ONE (01:04)
--- NOTE | 2022-02-06 01:53 | ER ---
Nurse's Notes [facility] Name: Truman Malave Jr Age: 76 yrs Sex: Male : 1945 Arrival Date: 02/05/2022 Time: 21:36 Bed 8 Private MD: Diagnosis: Ureterolithiasis Presentation: 02/05 21:58 Chief complaint: Patient states: Left flank pain radiating to LLQ since diagnosed with lp1 kidney stone 1 week ago, reports pain is still in the same location, not resolving; reports nausea and vomiting. Coronavirus screen: At this time, the client does not indicate any symptoms associated with coronavirus-19. Ebola Screen: No symptoms or risks identified at this time. Initial Sepsis Screen: Does the patient meet any 2 criteria? No. Patient's initial sepsis screen is negative. Does the patient have a suspected source of infection? No. Patient's initial sepsis screen is negative. Risk Assessment: Do you want to hurt yourself or someone else? Patient reports no desire to harm self or others. Onset of symptoms was February 05, 2022. 21:58 Method Of Arrival: Ambulatory lp1 21:58 Acuity: NETTE 3 lp1 Historical: - Allergies: 22:01 Dexilant; lp1 22:01 Latex, Natural Rubber; lp1 22:01 Phenergan; lp1 - Home Meds: 22:01 Chlorthalidone Oral [Active]; amlodipine oral [Active]; lp1 - PMHx: 22:01 Hypertensive disorder; Kidney stone; lp1 - PSHx: 22:01 Cholecystectomy; Hernia sx; lp1 - Immunization history:: Adult Immunizations up to date, Client reports receiving the 2nd dose of the Covid vaccine. - Social history:: Smoking status: Patient denies any tobacco usage or history of. Screenin:02 Abuse screen: Denies threats or abuse. Denies injuries from another. Nutritional lp1 screening: No deficits noted. Tuberculosis screening: No symptoms or risk factors identified. Fall Risk None identified. Assessment: 22:00 General: Appears uncomfortable, Behavior is cooperative. Pain: Complains of pain in ll3 abdomen Pain currently is 10 out of 10 on a pain scale. Neuro: Level of Consciousness is awake, alert, obeys commands, Oriented to person, place, time, situation. GI: Abdomen is round non-distended, Reports lower abdominal pain, nausea, vomiting. Derm: Skin is pink, warm \T\ dry. 23:18 Reassessment: pt states the medications aren't really working whatever they gave him bb last time worked better. Dr Monsivais notified. 02/06 00:32 Reassessment: No changes from previously documented assessment. Patient and/or family ll3 updated on plan of care and expected duration. Pain level reassessed. Patient is alert, oriented x 3, equal unlabored respirations, skin warm/dry/pink. 01:30 Reassessment: No changes from previously documented assessment. Patient and/or family ll3 updated on plan of care and expected duration. Pain level reassessed. Patient is alert, oriented x 3, equal unlabored respirations, skin warm/dry/pink. 02:34 Reassessment: No changes from previously documented assessment. Patient and/or family ll3 updated on plan of care and expected duration. Pain level reassessed. Patient is alert, oriented x 3, equal unlabored respirations, skin warm/dry/pink. Vital Signs: 02/05 21:58 BP 179 / 101; Pulse 110; Resp 18; Temp 97.3(TE); Pulse Ox 99% on R/A; Weight 68.04 kg lp1 (R); Height 5 ft. 6 in. (167.64 cm); Pain 10/10; 23:00 BP 135 / 73; Pulse 79; Resp 15; Pulse Ox 98% ; ll3 02/06 00:31 BP 115 / 69; Pulse 75; Resp 17; Pulse Ox 98% on R/A; ll3 01:30 BP 130 / 75; Pulse 82; Resp 17; Pulse Ox 98% on R/A; ll3 02:37 BP 129 / 76; Pulse 79; Resp 18; Pulse Ox 98% on R/A; ll3 02/05 21:58 Body Mass Index 24.21 (68.04 kg, 167.64 cm) lp1 02/05 21:58 Patient activley vomiting lp1 ED Course: 21:36 Patient arrived in ED. bp1 22:01 Triage completed. lp1 22:01 Arm band placed on. lp1 22:08 Elijah Monsivais MD is Attending Physician. mh7 22:14 Inserted saline lock: 20 gauge in right antecubital area, using aseptic technique. mw1 23:22 Bowen Sheikh, RN is Primary Nurse. ll3 23:29 CT Abd/Pelvis - Without Contrast In Process Unspecified. EDMS 02/06 01:05 Urine Culture Sent. sm5 01:52 Brant Larsen MD is Referral Physician. mh7 02:34 Patient has correct armband on for positive identification. Placed in gown. Bed in low ll3 position. Call light in reach. Side rails up X 1. 02:34 No provider procedures requiring assistance completed. IV discontinued, intact, ll3 bleeding controlled, No redness/swelling at site. Pressure dressing applied. Administered Medications: 02/05 22:40 Drug: NS 0.9% 1000 ml Route: IV; Rate: 1 bolus; Site: right hand; ll3 02/06 02:34 Follow up: Response: No adverse reaction; IV Status: Completed infusion; IV Intake: ll3 1000ml 02/05 22:42 Drug: Zofran (Ondansetron) 4 mg Route: IVP; Site: right hand; ll3 23:23 Follow up: Response: No adverse reaction ll3 22:43 Drug: morphine 4 mg Route: IVP; Infused Over: 4 mins; Site: right hand; ll3 23:23 Follow up: Response: No adverse reaction ll3 02/06 01:00 Drug: Zofran (Ondansetron) 4 mg Route: IVP; Site: right hand; ll3 02:09 Follow up: Response: No adverse reaction ll3 01:04 Drug: Ketorolac 30 mg Route: IVP; Site: right hand; ll3 02:09 Follow up: Response: No adverse reaction; Marked relief of symptoms ll3 02:09 Drug: Potassium Effervescent Tablet 50 mEq Route: PO; ll3 02:34 Follow up: Response: No adverse reaction ll3 02:09 Drug: Rocephin (cefTRIAXone) 1 grams Route: IV; Rate: per protocol; Site: right hand; ll3 02:34 Follow up: Response: No adverse reaction; IV Status: Completed infusion; IV Intake: [id number] Medication: 02/05 22:02 VIS not applicable for this client. lp1 Intake: 02/06 02:34 IV: 50ml; Total: 50ml. ll3 02:34 IV: 1000ml; Total: 1050ml. ll3 Outcome: 01:52 Discharge ordered by . fam7 02:34 Discharged to home ambulatory. ll3 02:34 Condition: stable 02:34 Discharge instructions given to patient, Instructed on discharge instructions, follow up and referral plans. medication usage, Demonstrated understanding of instructions, follow-up care, medications, Prescriptions given X 5 02:38 Patient left the ED. ll3 Signatures: Dispatcher [employer] EDMS Kell Rivas RN RN bb Mary Kay Soni RN RN 1 [place] 1 Elma Lopez Maurice, MD MD mh7 Bowen Sheikh RN RN 3 Erendira Archer RN RN 5
--- NOTE | 2022-02-06 01:53 | EDPHYS ---
Physician Documentation [facility] Name: Truman Malave Jr Age: 76 yrs Sex: Male : 1945 Arrival Date: 02/05/2022 Time: 21:36 Bed 8 Private MD: ED Physician Elijah Monsivais HPI: 02/05 22:30 This 76 yrs old Male presents to ER via Ambulatory with complaints of Vomiting, mh7 Possible Kidney Stone. 22:30 The patient complains of pain in the left flank. mh7 22:30 The pain radiates to the LLQ. Onset: The symptoms/episode began/occurred 1 week(s) ago. mh7 Modifying factors: The symptoms are alleviated by nothing. the symptoms are aggravated by movement, palpation/percussion. Associated signs and symptoms: Pertinent positives: nausea, vomiting. Severity of pain: At its worst the pain was moderate yesterday, in the emergency department the pain is unchanged. The patient has been recently seen at the [facility] Emergency Department, this week. Historical: - Allergies: 22:01 Dexilant; lp1 22:01 Latex, Natural Rubber; lp1 22:01 Phenergan; lp1 - Home Meds: 22:01 Chlorthalidone Oral [Active]; amlodipine oral [Active]; lp1 - PMHx: 22:01 Hypertensive disorder; Kidney stone; lp1 - PSHx: 22:01 Cholecystectomy; Hernia sx; lp1 - Immunization history:: Adult Immunizations up to date, Client reports receiving the 2nd dose of the Covid vaccine. - Social history:: Smoking status: Patient denies any tobacco usage or history of. ROS: 22:30 Constitutional: Negative for fever, chills, and weight loss, Eyes: Negative for injury, mh7 pain, redness, and discharge, ENT: Negative for injury, pain, and discharge, Neck: Negative for injury, pain, and swelling, Cardiovascular: Negative for chest pain, palpitations, and edema, Respiratory: Negative for shortness of breath, cough, wheezing, and pleuritic chest pain, : Negative for injury, bleeding, discharge, and swelling, MS/Extremity: Negative for injury and deformity, Skin: Negative for injury, rash, and discoloration, Neuro: Negative for headache, weakness, numbness, tingling, and seizure, Psych: Negative for depression, anxiety, suicide ideation, homicidal ideation, and hallucinations, Allergy/Immunology: Negative for hives, rash, and allergies, Endocrine: Negative for neck swelling, polydipsia, polyuria, polyphagia, and marked weight changes, Hematologic/Lymphatic: Negative for swollen nodes, abnormal bleeding, and unusual bruising. Exam: 22:30 Head/Face: Normocephalic, atraumatic. Eyes: Pupils equal round and reactive to light, mh7 extra-ocular motions intact. Lids and lashes normal. Conjunctiva and sclera are non-icteric and not injected. Cornea within normal limits. Periorbital areas with no swelling, redness, or edema. Neck: Trachea midline, no thyromegaly or masses palpated, and no cervical lymphadenopathy. Supple, full range of motion without nuchal rigidity, or vertebral point tenderness. No Meningismus. Chest/axilla: Normal chest wall appearance and motion. Nontender with no deformity. No lesions are appreciated. Cardiovascular: Regular rate and rhythm with a normal S1 and S2. No gallops, murmurs, or rubs. Normal PMI, no JVD. No pulse deficits. Respiratory: Lungs have equal breath sounds bilaterally, clear to auscultation and percussion. No rales, rhonchi or wheezes noted. No increased work of breathing, no retractions or nasal flaring. Abdomen/GI: Soft, non-tender, with normal bowel sounds. No distension or tympany. No guarding or rebound. No evidence of tenderness throughout. 22:30 Skin: Warm, dry with normal turgor. Normal color with no rashes, no lesions, and no evidence of cellulitis. MS/ Extremity: Pulses equal, no cyanosis. Neurovascular intact. Full, normal range of motion. Neuro: Awake and alert, GCS 15, oriented to person, place, time, and situation. Cranial nerves II-XII grossly intact. Motor strength 5/5 in all extremities. Sensory grossly intact. Cerebellar exam normal. Normal gait. Psych: Awake, alert, with orientation to person, place and time. Behavior, mood, and affect are within normal limits. 22:30 Constitutional: The patient appears in no acute distress, alert, awake, uncomfortable. 22:30 Back: normal spinal alignment noted, CVA tenderness, that is moderate, is noted on the left, vertebral tenderness, is not appreciated, muscle spasm, is not present. Vital Signs: 21:58 BP 179 / 101; Pulse 110; Resp 18; Temp 97.3(TE); Pulse Ox 99% on R/A; Weight 68.04 kg lp1 (R); Height 5 ft. 6 in. (167.64 cm); Pain 10/10; 23:00 BP 135 / 73; Pulse 79; Resp 15; Pulse Ox 98% ; ll3 02/06 00:31 BP 115 / 69; Pulse 75; Resp 17; Pulse Ox 98% on R/A; ll3 01:30 BP 130 / 75; Pulse 82; Resp 17; Pulse Ox 98% on R/A; ll3 02:37 BP 129 / 76; Pulse 79; Resp 18; Pulse Ox 98% on R/A; ll3 02/05 21:58 Body Mass Index 24.21 (68.04 kg, 167.64 cm) lp1 02/05 21:58 Patient activley vomiting lp1 MDM: 02/06 01:23 Differential diagnosis: nephrolithiasis, pyelonephritis, UTI, diverticulitis. Data [facility] reviewed: vital signs, nurses notes, lab test result(s). 01:24 Data interpreted: Pulse oximetry: on room air is 98 %. Interpretation: normal. [facility] Counseling: I had a detailed discussion with the patient and/or guardian regarding: the historical points, exam findings, and any diagnostic results supporting the discharge/admit diagnosis, lab results, radiology results, the need for outpatient follow up, a urologist. Response to treatment: the patient's symptoms have resolved after treatment, the patient's blood pressure is in an acceptable range, mental status has returned to baseline, the patient no longer shows bradycardia, the patient is not short of breath, the patient is not tachycardic, the patient's pain is gone. 01:52 Patient medically screened. [facility] 02/05 22:30 Order name: CBC with Diff; Complete Time: 23:36 [facility] 02/05 22:30 Order name: CMP; Complete Time: 23:50 [facility] 02/05 22:30 Order name: Lipase; Complete Time: 23:50 [facility] 02/05 22:30 Order name: Urine Microscopic Only; Complete Time: 00:47 [facility] 02/06 00:03 Order name: Urine Dipstick-Ancillary; Complete Time: 00:10 [facility] 02/06 00:08 Order name: Urine Dipstick-Ancillary [facility] 02/05 22:30 Order name: CT Abd/Pelvis - Without Contrast [facility] 02/06 00:28 Order name: Urine Culture [facility] 02/05 22:30 Order name: IV Saline Lock; Complete Time: 22:45 [facility] 02/05 22:30 Order name: Labs collected and sent; Complete Time: 23:22 [facility] 02/05 22:30 Order name: Urine Dipstick-Ancillary (obtain specimen); Complete Time: 22:45 [facility] Administered Medications: 02/05 22:40 Drug: NS 0.9% 1000 ml Route: IV; Rate: 1 bolus; Site: right hand; 3 02/06 02:34 Follow up: Response: No adverse reaction; IV Status: Completed infusion; IV Intake: ll3 1000ml 02/05 22:42 Drug: Zofran (Ondansetron) 4 mg Route: IVP; Site: right hand; ll3 23:23 Follow up: Response: No adverse reaction 3 22:43 Drug: morphine 4 mg Route: IVP; Infused Over: 4 mins; Site: right hand; ll3 23:23 Follow up: Response: No adverse reaction [facility] 02/06 01:00 Drug: Zofran (Ondansetron) 4 mg Route: IVP; Site: right hand; ll3 02:09 Follow up: Response: No adverse reaction ll3 01:04 Drug: Ketorolac 30 mg Route: IVP; Site: right hand; ll3 02:09 Follow up: Response: No adverse reaction; Marked relief of symptoms ll3 02:09 Drug: Potassium Effervescent Tablet 50 mEq Route: PO; ll3 02:34 Follow up: Response: No adverse reaction ll3 02:09 Drug: Rocephin (cefTRIAXone) 1 grams Route: IV; Rate: per protocol; Site: right hand; ll3 02:34 Follow up: Response: No adverse reaction; IV Status: Completed infusion; IV Intake: [id number] Disposition Summary: 02/06/22 01:52 Discharge Ordered Location: Home [facility] Problem: an ongoing problem [facility] Symptoms: have improved [facility] Condition: Stable [facility] Diagnosis - Ureterolithiasis [facility] Followup: [facility] - With: Private Physician - When: 1 - 2 days - Reason: Worsening of condition, Recheck today's complaints, Continuance of care, Re-evaluation by your physician Followup: [facility] - With: Brant Larsen MD - When: 1 - 2 days - Reason: Worsening of condition, Recheck today's complaints Discharge Instructions: - Discharge Summary Sheet [facility] - Kidney Stones, [id number] [facility] Forms: - Medication Reconciliation Form [facility] - Thank You Letter [facility] - Antibiotic Education [facility] - Prescription Opioid Use [facility] Prescriptions: - Flomax 0.4 mg Oral capsule - take 1 capsule by ORAL route once daily 1/2 hour following the same meal each [facility] day; 7 capsule; Refills: 0, Product Selection Permitted - ketorolac 10 mg Oral tablet - take 1 tablet by ORAL route every 8-12 hours As needed not to exceed 40 mg in [facility] 24hrs; 10 tablet; Refills: 0, Product Selection Permitted - ondansetron 4 mg Oral tablet,disintegrating - place 1 tablet by TRANSLINGUAL route every 8 hours As needed; 10 tablet; [facility] Refills: 0, Product Selection Permitted - Cephalexin 500 mg Oral Capsule - take 1 capsule by ORAL route every 12 hours for 10 days; 20 capsule; Refills: [facility] 0, Product Selection Permitted - Tylenol-Codeine #3 300 mg-30 mg Oral - take 2 tablet by ORAL route every 6 hours As needed; 20 tablet; Refills: 0, [facility] Product Selection Permitted Signatures: Dispatcher [employer] Mary Kay Mack RN RN lp1 Elijah Monsivais MD MD [facility] Bowen Sheikh RN RN ll3
[2022-02-06] MEDS ORDERED: CEFTRIAXONE 1000 MG/VIAL ONE (02:06)
[2022-02-06] MEDS ORDERED: POTASSIUM 25 MEQ EFFERV TAB ONE (02:06)
[2022-02-06] MEDS ORDERED: NA CHLORIDE 0.9% 50 ML ONE (02:06)
[2022-02-06 02:51] VITALS: TEMP 97.3
[2022-02-06 02:53] VITALS: O2SAT 98
[2022-02-06 03:00] VITALS: BP 129/76
--- NOTE | 2022-02-06 16:01 | RAD REPORT ---
EXAM DESCRIPTION: CT - Abdomen Pelvis Wo Contrast - 02/06/2022 6:49 am CLINICAL HISTORY: 76 years Male Flank pain, kidney stone suspected TECHNIQUE: Contiguous axial images obtained through the abdomen and pelvis without IV contrast. Coron al and sagittal reformatted images provided. This CT exam was performed according to our departmental dose-optimization program, which includes on e or more of the following dose reduction techniques: automated exposure control, adjustment of the m A and/or kV according to patient size, and/or use of iterative reconstruction technique. COMPARISON: No prior exams provided for comparison. FINDINGS: There is moderate left hydronephrosis and proximal hydroureter due to a 5 mm left mid uret eral calculus. There are two nonobstructing intrarenal calculi on the right measuring up to 3.5 mm. T here are punctate nonobstructing intrarenal calculi on the left. No other ureteral calculi. No right- sided hydronephrosis. There is a 3 mm calculus located dependently in the urinary bladder. Small left renal cyst. Prior cholecystectomy without biliary dilatation. Evidence of prior granulomatous disease in the sple en The lung bases, unenhanced liver, pancreas, and adrenal glands demonstrate no acute findings. There is distal colonic diverticulosis without diverticulitis, bowel inflammation, obstruction, free intraperitoneal air, or ascites. The appendix is normal. Chronic degenerative changes noted in the lower lumbar spine without acute fracture or aggressive oss eous lesion. Postsurgical changes in the right groin. IMPRESSION: Moderate left hydronephrosis and proximal hydroureter due to a 5 mm left mid ureteral ca lculus. Nonobstructing intrarenal calculi bilaterally. 3 mm calculus located dependently in the urinary bladd er. No other acute abdominal or pelvic findings. Electronically signed by: Sherron Greco MD 02/05/2022 11:43 PM CDT Due to temporary technical issues with the PACS/Fluency reporting system, reports are being signed by the in house radiologists without. review as a courtesy to insure prompt reporting. The interpreting radiologist is fully responsible for the content of the report.
== END 2022-02-06 02:38 | disposition home or self-care (01) ==
LOC: ER 21:31
DX: N20.1 Calculus of ureter (principal); I10 Essential (primary) hypertension; Z87.442 Personal history of urinary calculi; Z88.8 Allergy status to other drugs, medicaments and biological substances; Z91.048 Other nonmedicinal substance allergy status
CPT/HCPCS: 87088; 85025; 87086; 36415; 81003; 81015; 83690; 80053; 74176; J7030; J2405 ×2; 96361; 96365; 96375; 99284

== ENCOUNTER 2024-06-07 04:18 | Emergency (ER) | payer OTHER ==
[2024-06-07] MEDS ORDERED: FAMOTIDINE 20 MG/2 ML VIAL IV ONE (04:35)
[2024-06-07] MEDS ORDERED: PANTOPRAZOLE 40 MG INJ ONE (04:35)
[2024-06-07] MEDS ORDERED: NA CHLORIDE 0.9% 1,000 ML ONE (04:36)
[2024-06-07 05:19] LABS: Absolute Eosinophils 0.4 K/uL (0-0.5); Absolute Lymphocytes (CBC) 1.1 K/uL (0.7-4.9); Absolute Monocytes 0.7 K/uL (0.1-1.3); Absolute Neutrophil 2.6 K/uL (1.8-8.0); Basophils % 0.9 % (0-1.3); Eosinophils % 7.8 % (0-4.4); Hematocrit 35.7 % (39.6-49.0); Hemoglobin 12.6 g/dL (13.6-17.9); Lymphocytes % 22.2 % (15.3-44.8); MCH 33.3 pg (27.0-35.0); MCHC 35.2 g/dL (32.0-36.0); MCV 94.6 fL (80-100); MPV 8.2 fL (7.6-11.3); Monocytes % 15.5 % (3.3-12.3); Neutrophils % 53.6 % (41.7-73.7); Nucleated Red Blood Cells % 0.1 % (0-0); Platelets 177 thou/uL (152-406); RBC Red Blood Cell Count 3.77 M/uL (4.33-5.43); Red Cell Distribution Width 13.3 % (12.1-15.2)
[2024-06-07 05:37] LABS: Protime INR 1.17
[2024-06-07 05:42] LABS: Albumin 2.9 g/dL (3.4-5.0); Albumin/Globulin Ratio 0.9 (1.1-1.8); Bilirubin Direct 0.2 mg/dL (0-0.2); Bilirubin Indirect, Calculated 0.8 mg/dL (0.2-0.8); Globulin 3.2 g/dL (2.3-3.5); Magnesium 1.8 mg/dL (1.6-2.4); Protein, Total 6.1 g/dL (6.4-8.2); Troponin High Sensitivity 11.4 pg/mL (<58.9)
[2024-06-07] MEDS ORDERED: POTASSIUM CL SA 10 MEQ TAB PO ONE (06:16)
--- NOTE | 2024-06-07 07:17 | EDPHYS ---
Physician Documentation [facility] Name: Truman Malave Jr Age: 79 yrs Sex: Male : 1945 Arrival Date: 06/07/2024 Time: 04:18 Bed 6 Private MD: ED Physician Phil Hadley HPI: 06/07 04:31 This 79 yrs old Male presents to ER via Unassigned with complaints of sp4 Epigastric Pain. 06:03 Patient is a very pleasant 79-year-old male who presents with complaint of epigastric sp4 pain. Patient has had worsening epigastric pain burning in quality with some constipation for the past 2 days. Patient's primary physician is Dr. Martinez. Patient at home takes Gaviscon, chlorthalidone, carvedilol, and potassium supplementation. Historical: - Allergies: 04:31 Dexilant; vc1 04:31 Latex; vc1 04:31 Phenergan; vc1 - Home Meds: 04:31 Chlorthalidone Oral [Active]; carvedilol oral [Active]; Potassium Chloride Oral vc1 [Active]; - PMHx: 04:31 Hypertensive disorder; Kidney stone; vc1 - PSHx: 04:31 Cholecystectomy; Hernia sx; vc1 - Immunization history:: Adult Immunizations up to date. - Infectious Disease History:: Denies. - Family history:: not pertinent. - Social history:: Smoking status: Patient denies any tobacco usage or history of. ROS: 06:03 Constitutional: Negative for fever, chills, and weight loss, Positive Epigastric pain sp4 and constipation 06:03 All other systems are negative, Exam: 06:03 Constitutional: This is a well developed, well nourished patient who is awake, alert, sp4 and in no acute distress. Head/Face: Normocephalic, atraumatic. Eyes: Pupils equal round and reactive to light, extra-ocular motions intact. Lids and lashes normal. Conjunctiva and sclera are not injected. Cornea within normal limits. Periorbital areas with no swelling, redness, or edema. ENT: Nares patent. No nasal discharge, no septal abnormalities noted. Tympanic membranes are normal and external auditory canals are clear. Oropharynx with no redness, swelling, or masses, exudates, or evidence of obstruction, uvula midline. Mucous membranes moist. Neck: Trachea midline, no thyromegaly or masses palpated, and no cervical lymphadenopathy. Supple, full range of motion without nuchal rigidity, or vertebral point tenderness. Chest/axilla: Normal chest wall appearance and motion. Nontender with no deformity. No lesions are appreciated. Cardiovascular: Regular rate and rhythm with a normal S1 and S2. No gallops, murmurs, or rubs. Normal PMI, no JVD. No pulse deficits. Respiratory: Lungs have equal breath sounds bilaterally, clear to auscultation and percussion. No rales, rhonchi or wheezes noted. No increased work of breathing, no retractions or nasal flaring. Abdomen/GI: Soft, with normal bowel sounds. No distension or tympany. No guarding or rebound. No evidence of tenderness throughout. Back: No spinal tenderness. No costovertebral tenderness. Skin: Warm, dry with normal turgor. Normal color with no rashes, no lesions, and no evidence of cellulitis. MS/ Extremity: Pulses equal, no cyanosis. Neurovascular intact. Full, normal range of motion. Neuro: Awake and alert, GCS 15, oriented to person, place, time, and situation. Cranial nerves II-XII grossly intact. Motor strength 5/5 in all extremities. Sensory grossly intact. Psych: Awake, alert, with orientation to person, place and time. Behavior, mood, and affect are within normal limits 06:03 ECG was reviewed by the Attending Physician. EKG at 64 bpm Vital Signs: 04:28 BP 178 / 99; Pulse 71; Resp 14; Temp 97.7; Pulse Ox 99% ; Weight 68.49 kg; Height 5 ft. vc1 6 in. ; Pain 2/10; 04:30 BP 177 / 83; Pulse 62; Resp 20; Temp 98.2; Pulse Ox 100% on R/A; kj2 05:34 BP 177 / 82; Pulse 60; Resp 18; Pulse Ox 98% on R/A; kj2 06:32 BP 178 / 84; Pulse 58; Resp 14; Pulse Ox 99% on R/A; kj2 04:28 Body Mass Index 24.37 (68.49 kg, 167.64 cm) vc1 04:28 Pain Scale: Adult vc1 Katarina Coma Score: 06:03 Eye Response: spontaneous(4). Motor Response: obeys commands(6). Verbal Response: sp4 oriented(5). Total: 15. MDM: 04:32 Medical Screening Exam initiated sp4 06:57 ED course: CT report - IMPRESSION: 1. Mild bilateral hydroureter and hydronephrosis. sp4 This may be related to bladder outlet obstruction. 2. Mild wall thickening of the urinary bladder. This could be seen with cystitis or chronic bladder outlet obstruction. 3. Significantly enlarged predominantly central enlargement of the prostate. 4. Nonobstructing left nephrolithiasis. 5. Diverticulosis without evidence of acute diverticulitis. 6. Coronary artery atherosclerosis. Electronically signed by: Osmany Rendon DO 06/07/2024 06:49 AM. 20:10 Differential diagnosis: coronary artery disease, cholecystitis, Cholelithiasis, sp4 diverticulitis, gastritis, gastroesophageal reflux disease. Data reviewed: vital signs, nurses notes, old medical records, lab test result(s), EKG, radiologic studies, CT scan. Consideration of Admission/Observation Escalation of care including admission/observation considered. ED course: Patient's workup is essentially negative , CT is positive for prostatomegaly and signs of chronic bladder outlet obstruction with mild bilateral hydronephrosis. Patient was advised to see urologist about that. Otherwise stable for discharge home. Prescribed p.o. Protonix for symptoms of GERD.. 06/07 05:29 Order name: CBC with Automated Diff; Complete Time: 06:09 EDMS 06/07 05:37 Order name: Protime (+INR); Complete Time: 06:09 EDMS 06/07 05:43 Order name: Basic Metabolic Panel; Complete Time: 06:09 EDMS 06/07 05:43 Order name: Liver (Hepatic) Function; Complete Time: 06:09 EDMS 06/07 05:43 Order name: Troponin High Sensitivity; Complete Time: 06:09 EDMS 06/07 05:43 Order name: NT PRO-BNP; Complete Time: 06:09 EDMS 06/07 05:43 Order name: Magnesium; Complete Time: 06:09 EDMS 06/07 05:43 Order name: Lipase; Complete Time: 06:09 EDMS 06/07 05:59 Order name: Basic Metabolic Panel EDMS 06/07 05:59 Order name: Liver (Hepatic) Function EDMS 06/07 05:59 Order name: Troponin High Sensitivity EDNC 06/07 05:59 Order name: NT PRO-BNP EDNC 06/07 05:59 Order name: Magnesium EDNC 06/07 05:59 Order name: Lipase EDNC 06/07 05:59 Order name: CBC with Automated Diff EDMS 06/07 05:59 Order name: Protime (+INR) EDNC 06/07 04:32 Order name: CT Chest, Abdomen, Pelvis - W/Contrast 4 06/07 05:52 Order name: Chest Single View EDNC 06/07 04:31 Order name: EKG; Complete Time: 05:54 sp4 06/07 04:31 Order name: Cardiac monitoring; Complete Time: 04: sp4 06/07 04:31 Order name: EKG - Nurse/Tech; Complete Time: 04:31 sp4 06/07 04:31 Order name: IV Saline Lock; Complete Time: 04:31 sp4 06/07 04:31 Order name: Labs collected and sent; Complete Time: 04: sp4 06/07 04:31 Order name: O2 Per Protocol; Complete Time: 04: sp4 06/07 04:31 Order name: O2 Sat Monitoring; Complete Time: 04:31 sp4 EC:31 Rate is 64 beats/min. Rhythm is regular, Sinus Rhythm. Left axis deviation noted. MO sp4 interval is prolonged. QRS interval is normal. QT interval is normal. No Q waves. T waves are Normal. No ST changes noted. Clinical impression: No evidence of ischemia. Interpreted by me. Reviewed by me. Administered Medications: 04:39 Drug: Pantoprazole IVP 40 mg IVP once Route: IVP; Site: right antecubital; cp4 05:13 Follow up: Response: No adverse reaction cp4 04:40 Not Given (Patient Refused): morphineor iv 4 mg IVP once over 4 mins cp4 04:40 Not Given (Patient Refused): ondansetron 4 mg IVP once; over 2 minutes cp4 04:40 Drug: NS 0.9% IV 1000 ml IV at 1 bolus Per protocol; to be given as a bolus over 60 cp4 minutes Route: IV; Rate: 1 bolus; Site: right antecubital; 05:26 Follow up: Response: No adverse reaction; IV Status: Completed infusion cp4 04:40 Drug: Famotidine IVP 20 mg IVP once; dilute with 10 mL 0.9% NaCl; give over 2 minutes cp4 Route: IVP; Site: right antecubital; 05:13 Follow up: Response: No adverse reaction cp4 06:20 Not Given (Patient Refused): potassium [id number] meq PO once kj2 Disposition Summary: 06/07/24 07:16 Discharge Ordered Notes: Location: Home sp4 Problem: new sp4 Symptoms: have improved sp4 Condition: Stable sp4 Diagnosis - . Acid reflux, GERD, Epigastric Pain sp4 Followup: sp4 - With: Private Physician - When: 7 - 10 days - Reason: Recheck today's complaints Discharge Instructions: - Discharge Summary Sheet sp4 - Gastroesophageal Reflux Disease, Adult, [facility] sp4 Forms: - Patient Portal Instructions sp4 Prescriptions: - Protonix 40 mg Oral Tablet - take 1 tablet ORAL route once daily; 30 tablet; Refills: 0, Product Selection sp4 Permitted Signatures: Dispatcher [employer] EDPrema Serrano RN RN vc1 Phil Hadley MD MD sp4 Aaliyah Lackey cp4 Radha Dominguez RN kj2 Corrections: (The following items were deleted from the chart) 05:55 05:53 PROTIME (+INR)+COAG.LAB.BRZ ordered. EDMS EDMS 05:56 05:53 Chest Abdomen Pelvis W Cont ordered. EDMS EDMS 05:56 05:53 BASIC METABOLIC PANEL+C.LAB.BRZ ordered. EDMS EDMS 05:56 05:53 CBC+H.LAB.BRZ ordered. EDMS EDMS 05:56 05:53 HEPATIC FUNCTION+C.LAB.BRZ ordered. EDMS EDMS 05:56 05:53 MAGNESIUM+C.LAB.BRZ ordered. EDMS EDMS 05:56 05:53 PROBNP+C.LAB.BRZ ordered. EDMS EDMS 05:56 05:53 Troponin High Sensitivity+C.LAB.BRZ ordered. EDMS EDMS 05:56 05:54 LIPASE+C.LAB.BRZ ordered. EDMS EDMS 06:08 05:53 Chest Single View+RAD.RAD.BRZ ordered. EDMS EDMS
--- NOTE | 2024-06-07 07:17 | ER ---
Nurse's Notes [facility] Name: Truman Malave Jr Age: 79 yrs Sex: Male : 1945 Arrival Date: 06/07/2024 Time: 04:18 Bed 6 Private MD: Diagnosis: . Acid reflux, GERD, Epigastric Pain Presentation: 06/07 04:28 Chief complaint: Patient states: PAIN IN MY UPPER STOMACH FOR 2 DAYS WORSE WHEN I LAY vc1 DOWN, BETTER WITH GAVISCON AND TUMS. Coronavirus screen: Client denies travel out of the [place] in the last 14 days. At this time, the client does not indicate any symptoms associated with coronavirus-19. Ebola Screen: Patient negative for fever greater than or equal to 101.5 degrees Fahrenheit, and additional compatible Ebola Virus Disease symptoms Patient denies exposure to infectious person. Patient denies travel to an Ebola-affected area in the 21 days before illness onset. No symptoms or risks identified at this time. Initial Sepsis Screen: Does the patient meet any 2 criteria? No. Patient's initial sepsis screen is negative. Does the patient have a suspected source of infection? No. Patient's initial sepsis screen is negative. Risk Assessment: Do you want to hurt yourself or someone else? Patient reports no desire to harm self or others. Onset of symptoms was June 05, 2024. Care prior to arrival: None. Activity prior to arrival: None. Mechanism of Injury: No Mechanism of Injury. Transition of care: patient was not received from another setting of care. 04:28 Method Of Arrival: Ambulatory vc1 04:28 Acuity: NETTE 3 vc1 Triage Assessment: 04:37 General: Appears in no apparent distress. uncomfortable, Behavior is calm, cooperative, vc1 appropriate for age. Pain: Complains of pain in abdomen and epigastric area Pain does not radiate. Pain currently is 2 out of 10 on a pain scale. Quality of pain is described as burning, Pain began 2-3 days ago. Aggravated by LAYING DOWN. EENT: No deficits noted. No signs and/or symptoms were reported regarding the EENT system. Neuro: Level of Consciousness is awake, alert, obeys commands, Oriented to person, place, time, situation, Appropriate for age. Cardiovascular: No deficits noted. Denies chest pain. Respiratory: Airway is patent Respiratory effort is even, unlabored, Respiratory pattern is regular, symmetrical. GI: Abdomen is flat, non-distended, Reports epigastric pain. : No deficits noted. No signs and/or symptoms were reported regarding the genitourinary system. Derm: Skin is intact, is healthy with good turgor, Skin is dry, Skin is normal, Skin temperature is warm. Musculoskeletal: Circulation, motion, and sensation intact. Historical: - Allergies: 04:31 Dexilant; vc1 04:31 Latex; vc1 04:31 Phenergan; vc1 - Home Meds: 04:31 Chlorthalidone Oral [Active]; carvedilol oral [Active]; Potassium Chloride Oral vc1 [Active]; - PMHx: 04:31 Hypertensive disorder; Kidney stone; vc1 - PSHx: 04:31 Cholecystectomy; Hernia sx; vc1 - Immunization history:: Adult Immunizations up to date. - Infectious Disease History:: Denies. - Family history:: not pertinent. - Social history:: Smoking status: Patient denies any tobacco usage or history of. Screenin:27 [facility] ED Fall Risk Assessment (Adult) History of falling in the last 3 months, cp4 including since admission No falls in past 3 months (0 pts) Confusion or Disorientation No (0 pts) Intoxicated or Sedated No (0 pts) Impaired Gait No (0 pts) Mobility Assist Device Used No (0 pt) Altered Elimination No (0 pt) Score/Fall Risk Level 0 - 2 = Low Risk Oriented to surroundings, Maintained a safe environment, Assessed \T\ reinforced patient's understanding of fall precautions, Hourly rounding (assess needs \T\ fall precautionary measures) done. Abuse screen: Denies threats or abuse. Nutritional screening: No deficits noted. Tuberculosis screening: No symptoms or risk factors identified. Assessment: :27 General: Appears in no apparent distress. comfortable, Behavior is calm, cooperative, cp4 appropriate for age. Pain: Complains of pain in epigastric area Pain does not radiate. Pain currently is 2 out of 10 on a pain scale. Pain began 2-3 days ago. Neuro: Level of Consciousness is awake, alert, obeys commands, Oriented to person, place, time, situation. Cardiovascular: Patient's skin is warm and dry. Respiratory: Airway is patent Respiratory effort is even, unlabored. GI: No signs and/or symptoms were reported involving the gastrointestinal system. : No signs and/or symptoms were reported regarding the genitourinary system. EENT: No signs and/or symptoms were reported regarding the EENT system. Derm: No signs and/or symptoms reported regarding the dermatologic system. Musculoskeletal: No signs and/or symptoms reported regarding the musculoskeletal system. 05:32 Reassessment: Patient appears in no apparent distress at this time. Patient and/or kj2 family updated on plan of care and expected duration. Pain level reassessed. Patient is alert, oriented x 3, equal unlabored respirations, skin warm/dry/pink. 06:44 Reassessment: Patient appears in no apparent distress at this time. Patient and/or kj2 family updated on plan of care and expected duration. Pain level reassessed. Patient is alert, oriented x 3, equal unlabored respirations, skin warm/dry/pink. 07:14 Reassessment: Patient and/or family updated on plan of care and expected duration. Pain ap3 level reassessed. Patient is alert, oriented x 3, equal unlabored respirations, skin warm/dry/pink. General: Appears in no apparent distress. comfortable, Behavior is calm, cooperative, appropriate for age. Neuro: Level of Consciousness is awake, alert, obeys commands, Oriented to person, place, time, situation. Cardiovascular: Patient's skin is warm and dry. Respiratory: Airway is patent Respiratory effort is even, unlabored. Vital Signs: 04:28 BP 178 / 99; Pulse 71; Resp 14; Temp 97.7; Pulse Ox 99% ; Weight 68.49 kg; Height 5 ft. vc1 6 in. ; Pain 2/10; 04:30 BP 177 / 83; Pulse 62; Resp 20; Temp 98.2; Pulse Ox 100% on R/A; kj2 05:34 BP 177 / 82; Pulse 60; Resp 18; Pulse Ox 98% on R/A; kj2 06:32 BP 178 / 84; Pulse 58; Resp 14; Pulse Ox 99% on R/A; kj2 04:28 Body Mass Index 24.37 (68.49 kg, 167.64 cm) vc1 04:28 Pain Scale: Adult vc1 Mcintosh Coma Score: 06:03 Eye Response: spontaneous(4). Motor Response: obeys commands(6). Verbal Response: sp4 oriented(5). Total: 15. ED Course: 04:24 Patient arrived in ED. jj6 04:27 Aaliyah Lackey is Primary Nurse. cp4 04:27 Bed in low position. Call light in reach. Side rails up X 1. Client placed on cp4 continuous cardiac and pulse oximetry monitoring. NIBP monitoring applied. delivery crew member on. Pulse ox on. NIBP on. 04:27 No provider procedures requiring assistance completed. Inserted saline lock: 20 gauge cp4 in right forearm, using aseptic technique. Inserted saline lock: Blood collected. Flushed with 10 mL NS. Patient maintains SpO2 saturation greater than 95% on room air. 04:30 Phil Hadley MD is Attending Physician. sp4 04:30 Provided Education on: CALL LIGHT, FALL PRECAUTIONS. kj2 04:31 Triage completed. vc1 04:31 Arm band placed on left wrist. vc1 04:32 Initial lab(s) drawn, by me, sent to lab. EKG done, by ED staff, reviewed by Phil Hadley MD. 05:32 Assisted to bathroom. kj2 06:04 Chest Single View In Process Unspecified. EDMS 06:16 CT Chest, Abdomen, Pelvis - W/Contrast In Process Unspecified. EDMS 07:02 Report given to BEATRIZ SHEARER and BEATRIZ MCNALLY. kj2 07:25 IV discontinued, intact, bleeding controlled, No redness/swelling at site. Pressure ap3 dressing applied. Administered Medications: 04:39 Drug: Pantoprazole IVP 40 mg IVP once Route: IVP; Site: right antecubital; cp4 05:13 Follow up: Response: No adverse reaction cp4 04:40 Not Given (Patient Refused): morphineor iv 4 mg IVP once over 4 mins cp4 04:40 Not Given (Patient Refused): ondansetron 4 mg IVP once; over 2 minutes cp4 04:40 Drug: NS 0.9% IV 1000 ml IV at 1 bolus Per protocol; to be given as a bolus over 60 cp4 minutes Route: IV; Rate: 1 bolus; Site: right antecubital; 05:26 Follow up: Response: No adverse reaction; IV Status: Completed infusion cp4 04:40 Drug: Famotidine IVP 20 mg IVP once; dilute with 10 mL 0.9% NaCl; give over 2 minutes cp4 Route: IVP; Site: right antecubital; 05:13 Follow up: Response: No adverse reaction cp4 06:20 Not Given (Patient Refused): potassium meq PO once kj2 Medication: 04:27 VIS not applicable for this client. cp4 Outcome: 07:16 Discharge ordered by . sp4 07:25 Discharged to home ambulatory, ap3 07:25 Condition: good 07:25 Discharge instructions given to patient, Instructed on discharge instructions, follow up and referral plans. medication usage, Demonstrated understanding of instructions, follow-up care, medications, Prescriptions given X 1, 07:26 Patient left the ED. ap3 Signatures: Dispatcher [employer] EDAlana Charles, RN RN ap3 Renata Prajapati jj6 Prema Ross RN RN vc1 Phil Hadley MD MD sp4 Aaliyah Lackey cp4 Radha Dominguez RN RN kj2
--- NOTE | 2024-06-07 10:46 | RAD REPORT ---
EXAM DESCRIPTION: Chest Single View CLINICAL HISTORY: CHEST PAIN COMPARISON: None. FINDINGS: 1 view(s) of the chest. Tubes and lines: Leads overlie the chest. Cardiomediastinal silhouette: Atherosclerotic calcification of thoracic aorta. Heart is not enlarged. Lungs: No consolidation, pneumothorax, or pleural effusion. Bones: No acute osseous abnormality. Degenerative change of the spine and shoulders. Upper abdomen: No abnormality identified. IMPRESSION: 1. No acute pulmonary process identified. Electronically signed by: Osmany Rendon DO 06/07/2024 06:44 AM CDT RP [id number] Due to temporary technical issues with the PACS/PIE Software reporting system, reports are being eliezer d by the in-house radiologist without review as a courtesy to ensure prompt reporting the interpreting radiologist is fully responsible for the content of the report. Transcribed Date/Time: 06/07/2024 10:45 AM
--- NOTE | 2024-06-07 10:53 | RAD REPORT ---
EXAM DESCRIPTION: Chest Abdomen Pelvis W Cont CLINICAL HISTORY: ABDOMINAL DISTENTION COMPARISON: 02/05/2022 TECHNIQUE: CT of the chest, abdomen and pelvis performed following IV administration of iodinated con trast. This exam was performed according to our departmental dose-optimization program, which includes automated exposure control, adjustment of the mA and/or kV according to patient size and/or use of iterative reconstruction technique. FINDINGS: Chest: Thyroid: No abnormalities of the visualized thyroid. Great Vessels: Great vessels have normal anatomic configuration. Thoracic Aorta: Normal caliber thoracic aorta with mild atherosclerotic plaque. No evidence of aortic dissection. Pulmonary arteries: No central filling defects. Heart: Coronary artery atherosclerosis. Lymph Nodes: No enlarged mediastinal lymph nodes identified. Esophagus: No abnormalities of the esophagus identified Other: No additional findings. Lungs: No airspace opacities identified. Pleura: No pleural effusion or pneumothorax. Trachea/Airways: No abnormalities of the visualized trachea or airways. Abdomen: Liver: The liver has normal size and density. Gallbladder: Prior cholecystectomy. Spleen, Pancreas, and Adrenal Glands: The spleen, pancreas, and adrenal glands are unremarkable. Kidneys: Mild bilateral hydroureter and hydronephrosis. Small left renal cyst. No follow-up imaging for the structure. Nonobstructing left nephrolithiasis. Vasculature: Aortoiliac atherosclerosis. IVC is unremarkable. The portal vein is patent. The proxim al visceral and renal arteries are patent. Stomach: The stomach and duodenum have normal course. Other: No free intraperitoneal air. No free fluid or lymphadenopathy. Pelvis: Bladder: Mild wall thickening of the urinary bladder. Bowel: No dilated loops of large or small bowel. Scattered diverticula throughout the colon. Appendix: Normal appendix. Pelvis: Significantly enlarged predominantly central enlargement of the prostate. Bones: Osteopenia. Mild endplate spondylosis. No acute abnormality. Disc height narrowing at L5/S1. M ild osteoarthritic change of the hips and shoulders. IMPRESSION: 1. Mild bilateral hydroureter and hydronephrosis. This may be related to bladder outlet obstruction . 2. Mild wall thickening of the urinary bladder. This could be seen with cystitis or chronic bladder outlet obstruction. 3. Significantly enlarged predominantly central enlargement of the prostate. 4. Nonobstructing left nephrolithiasis. 5. Diverticulosis without evidence of acute diverticulitis. 6. Coronary artery atherosclerosis. Electronically signed by: Osmany Rendon DO 06/07/2024 06:49 AM CDT RP [id number] Due to temporary technical issues with the PACS/SwitchNote reporting system, reports are being eliezer d by the in-house radiologist without review as a courtesy to ensure prompt reporting the interpreting radiologist is fully responsible for the content of the report. Transcribed Date/Time: 06/07/2024 10:53 AM
--- NOTE | 2024-06-07 12:13 | EKG ---
Test Date: 2024-06-07 Test Time: 04:31:40 Chief Technology Officer: RADHA MEASUREMENT RESULTS: Intervals: Rate: 64 RI: 240 QRSD: 100 QT: 432 QTc: 445 [place]: P: 78 RI: 240 QRS: -37 T: 82 INTERPRETIVE STATEMENTS: Sinus rhythm with 1st degree AV block Left axis deviation Left ventricular hypertrophy with repolarization abnormality Cannot rule out Septal infarct, age undetermined Abnormal ECG Compared to ECG 06/12/2011 07:01:11 First degree AV block now present Left-axis deviation now present Left ventricular hypertrophy now present Early repolarization now present Myocardial infarct finding now present Electronically Signed On 06-07-24 12:11:58 CDT by Ronak Briones
[2024-06-07 14:35] VITALS: TEMP 98.2
[2024-06-07 14:37] VITALS: BP 178/84; O2SAT 99
== END 2024-06-07 07:26 | disposition home or self-care (01) ==
LOC: ER 04:18
DX: K21.9 Gastro-esophageal reflux disease without esophagitis (principal); I10 Essential (primary) hypertension
CPT/HCPCS: 96361; 93005; 85025; 80048; 36415; 83735; 85610; 80076; 84484; 83690; 83880; 71260; 74177; 71045; 96375; 96374; 99285; Q9967; J2470; J7030